=== PATIENT | female | born 1930 | race Caucasian/White ===

== ENCOUNTER → 2016-11-11 | Outpatient (CLI) | payer MEDICARE ==
[~2016-11-11] MED LIST: AMLO10TA2 PO; ASPI-515 PO; ATEN50TA41 PO; ATOR10TA9 PO
== END | disposition home or self-care (01) ==
LOC: CFH 09:44
PROVIDERS: ATTEND Internal Medicine Cardiovascular Disease
DX: I08.1 Rheumatic disorders of both mitral and tricuspid valves (principal)
CPT/HCPCS: 93306

== ENCOUNTER → 2016-11-18 | Outpatient (CLI) | payer MEDICARE | END | disposition home or self-care (01) | LOC: CFH 10:30 | PROVIDERS: ATTEND Internal Medicine Cardiovascular Disease | DX: J98.6 Disorders of diaphragm (principal) | CPT/HCPCS: 71020 ==

== ENCOUNTER → 2016-12-16 | Outpatient (CLI) | payer MEDICARE ==
[~2016-12-16] MED LIST changes: +REGADENOSON 0.4 MG/5 ML SYRINGE ONE
== END | disposition home or self-care (01) ==
LOC: CFH 08:00
PROVIDERS: ATTEND Internal Medicine Cardiovascular Disease
DX: I25.10 Atherosclerotic heart disease of native coronary artery without angina pectoris (principal); I25.9 Chronic ischemic heart disease, unspecified
CPT/HCPCS: 78452; 93017; A9502; J2785

== ENCOUNTER 2017-07-13 23:10 | Emergency (ER) | payer MEDICARE ==
[~2017-07-13] VITALS: Ht 160 cm; Wt 77.3 kg
[~2017-07-13 23:10] MED LIST changes: -REGADENOSON 0.4 MG/5 ML SYRINGE ONE
[2017-07-13] MEDS ORDERED: LIDOCAINE GEL 2%, 5ML ONE (23:41)
[2017-07-14] MEDS ORDERED: HYDROCORTISONE 25 MG SUPP PR ONE
[2017-07-14] MEDS ORDERED: LIDOCAINE 4% CREAM EXT ONE
[2017-07-14] MEDS ORDERED: MIDAZOLAM 1 MG/ML, 2ML IVPush ONE (02:30)
[2017-07-14] MEDS ORDERED: MIDAZOLAM 1 MG/ML, 2ML ONE (02:36)
[2017-07-14] MEDS ORDERED: MIDAZOLAM 1 MG/ML, 2ML IVPush PRN (03:00)
[2017-07-14 03:29] VITALS: BP 159/69
== END 2017-07-14 01:35 | disposition home or self-care (01) ==
LOC: ED 23:27
DX: K64.4 Residual hemorrhoidal skin tags (principal); K59.00 Constipation, unspecified; Z90.49 Acquired absence of other specified parts of digestive tract; E78.00 Pure hypercholesterolemia, unspecified; I10 Essential (primary) hypertension
CPT/HCPCS: 74022; 96374; 99284; J2250